=== PATIENT | male | born 2000 | race Caucasian/White ===

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

== ENCOUNTER 2019-02-22 20:24 | Emergency (ER) | payer OTHER ==
[~2019-02-22] VITALS: Ht 180.3 cm; Wt 89.3 kg
[~2019-02-22 20:24] MED LIST changes: +CLON0.5T11 PO; +CYCL-331 PO; -CYCL10TA2 PO
[2019-02-22] MEDS ORDERED: DICL75TA PO (21:37)
[2019-02-22] MEDS ORDERED: HYDR-2765 PO (21:37)
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
[2019-02-22 21:45] VITALS: BP 132/74
[2019-02-22] MEDS ORDERED: HYDROcodone/APAP 7.5/325MG 1 TAB TABLET PO ONE (21:45)
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
== END 2019-02-22 21:49 | disposition home or self-care (01) ==
LOC: ER 20:24
DX: S43.402A Unspecified sprain of left shoulder joint, initial encounter (principal); S80.211A Abrasion, right knee, initial encounter; S80.212A Abrasion, left knee, initial encounter; F17.210 Nicotine dependence, cigarettes, uncomplicated; F41.9 Anxiety disorder, unspecified; V89.2XXA Person injured in unspecified motor-vehicle accident, traffic, initial encounter; Y93.89 Activity, other specified; Y92.89 Other specified places as the place of occurrence of the external cause; Y99.8 Other external cause status
CPT/HCPCS: 73030; 99284

== ENCOUNTER 2020-08-12 13:20 | Emergency (ER) | payer OTHER ==
[~2020-08-12] VITALS: Ht 180.3 cm; Wt 89.3 kg
[~2020-08-12 13:20] MED LIST changes: -CLON0.5T11 PO; +CLON0.5T4 PO; +DICL75TA PO; +HYDR-2765 PO
[2020-08-12 13:53] VITALS: BP 131/67
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
[2020-08-12] MEDS ORDERED: ORPH-16 PO (15:59)
== END 2020-08-12 16:08 | disposition home or self-care (01) ==
LOC: ER 13:20
DX: S30.1XXA Contusion of abdominal wall, initial encounter (principal); F41.9 Anxiety disorder, unspecified; F17.210 Nicotine dependence, cigarettes, uncomplicated; V89.2XXA Person injured in unspecified motor-vehicle accident, traffic, initial encounter; Y93.89 Activity, other specified; Y92.89 Other specified places as the place of occurrence of the external cause; Y99.8 Other external cause status
CPT/HCPCS: 99283